=== PATIENT | female | born 1995 | race American Indian/Alaskan Native ===

== ENCOUNTER 2017-04-08 18:53 | Emergency (ER) | payer OTHER ==
[2017-04-08 19:35] VITALS: BMI 27.3
[2017-04-08 19:40] VITALS: TEMP 97.9; O2SAT 100
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
[2017-04-08 22:59] VITALS: BP 101/60; PULSE 79; RESP 16
== END 2017-04-08 22:56 | disposition home or self-care (01) ==
LOC: ED 18:53
DX: Z03.89 Encounter for observation for other suspected diseases and conditions ruled out (principal); Y04.0XXA Assault by unarmed brawl or fight, initial encounter